=== PATIENT | female | born 1995 | race Caucasian/White ===

== ENCOUNTER 2018-02-05 14:02 | Emergency (ER) | payer BC ==
--- NOTE | 2018-02-05 14:53 | Emergency Department Record ---
History of Present Illness - General Chief complaint: Dehydration Stated complaint: DEHYDRATED Time Seen by Provider: 02/05/18 14:49 Source: Patient Mode of Arrival: Ambulatory Limitations: No limitations - History of Present Illness Initial comments: 23 yo female presents with nausea, vomiting and diarrhea that started on . She is feeling weak, tired, and dehydrated. No blood in the stools. No recent antibiotics. No definite sick contacts. NO underlying GI disease history. Her last vomiting was last night. The diarrhea continues. She was sent from a [facility] after evaluation. MD complaint: Diarrhea, Nausea, Vomiting Onset/Timin -: Days(s) Description of Vomiting: Watery Description of Diarrhea: Water Location: Diffuse Quality: Aching Improves with: None Worsens with: Eating Context: Other Associated Symptoms: Headaches, Malaise, Weakness - Related Data Home Medications Medication Instructions Recorded Confirmed Last Taken Ondansetron [Zofran Odt] 4 mg PO Q8H 02/05/18 02/05/18 Unknown Previous Rx's Medication Instructions Recorded Loperamide HCl [Imodium A-D] 2 mg PO Q4H PRN #12 tablet 02/05/18 Ondansetron [Zofran Odt] 4 mg PO Q8H #15 tab.rapdis 02/05/18 Allergies Allergy/AdvReac Type Severity Reaction Status Date / Time No Known Allergies Allergy not taking Unverified 02/05/18 14:49 Travel Screening - Travel/Exposure Within Last 30 Days Have you traveled within the last 30 days?: No Review of Systems Constitutional: Reports: Fever, Malaise, Weakness. Denies: Chills Eyes: Denies: Eye discharge ENT: Denies: Congestion, Throat pain Respiratory: Denies: Cough, Dyspnea, Hemoptysis, Stridor, Wheezes Cardiovascular: Denies: Chest pain, Palpitations, Syncope Endocrine: Reports: Fatigue Gastrointestinal: Reports: Diarrhea, Nausea, Vomiting Genitourinary: Denies: Dysuria, Urgency Musculoskeletal: Denies: Arthralgia, Back pain, Myalgia Skin: Denies: Bruising, Change in color, Rash Neurological: Reports: Headache. Denies: Confusion, Vertigo Psychiatric: Denies: Anxiety Hematological/Lymphatic: Denies: Easy bleeding, Easy bruising, Swollen glands Physical Exam - General General Appearance: Alert, Oriented x3, Cooperative, No acute distress Limitations: No limitations - Head Head exam: Atraumatic, Normal inspection - Eye Eye exam: Normal appearance. negative: Conjunctival injection, Scleral icterus - ENT ENT exam: Normal exam, Mucous membranes moist Ear exam: Normal external inspection Nasal Exam: Normal inspection Mouth exam: Normal external inspection - Neck Neck exam: Normal inspection - Respiratory Respiratory exam: Normal lung sounds bilaterally. negative: Respiratory distress - Cardiovascular Cardiovascular Exam: Regular rate, Normal rhythm, Normal heart sounds - GI/Abdominal GI/Abdominal exam: Soft. negative: Guarding, Rebound, Rigid, Tenderness - Rectal Rectal exam: Deferred - exam: Deferred - Extremities Extremities exam: negative: Pedal edema, Tenderness - Back Back exam: Denies: CVA tenderness (R), CVA tenderness (L) - Neurological Neurological exam: Alert, Oriented X3 - Psychiatric Psychiatric exam: Normal affect, Normal mood - Skin Skin exam: Dry, Intact, Normal color, Warm Course Vital Signs 02/05/18 14:45 Temperature 98.6 F Pulse Rate 104 H Respiratory 20 Rate Blood Pressure 157/99 Pulse Ox 96 - Reevaluation(s) Reevaluation #1: 02/05/18 15:57 The labs were reviewed The CBC is normal The CMP has normal Bili and Alk Phos but elevated AST/ALT of 100 and 200 No vomiting or diarrhea at this point in the ED 02/05/18 16:12 The patient is doing much better. No nausea. She still has a little urge to have diarrhea. We discussed her labs and need to have her liver enzymes recheck in 1-2 weeks. Sooner if not feeling better. Medical Decision Making - Lab Data Result diagrams: 02/05/18 14:50 02/05/18 14:50 Disposition Disposition: Discharge Clinical Impression: Vomiting and diarrhea, Dehydration Disposition: Home, Self-Care Condition: (1) Good Instructions: Dehydration (ED), Gastroenteritis (ED) Additional Instructions: Stay hydrated with small frequent amounts of fluids Call your doctor for close follow up Return if worse, fever, uncontrolled nausea or vomiting. You will need to have your liver enzymes rechecked in 1-2 weeks with your doctor. Return sooner if you have continued nausea, diarrhea or see any yellowing of the skin or white part of the eyes. Prescriptions: Loperamide HCl [Imodium A-D] 2 mg PO Q4H PRN #12 tablet PRN Reason: Diarrhea Ondansetron [Zofran Odt] 4 mg PO Q8H #15 tab.rapdis Forms: Patient Portal Access Time of Disposition: 16:13 Quality - Quality Measures Quality Measures: N/A - Blood Pressure Screening Does Patient Have Any of the Following: No Blood Pressure Classification: Hypertensive Reading Systolic Measurement: 157 Diastolic Measurement: 99 Screening for High Blood Pressure: < Pre-Hypertensive BP, F/U Documented > [ G8950] Pre-Hypertensive Follow-up Interventions: Referral to alternative/primary care provider.
[2018-02-05] MEDS ORDERED: ONDANSETRON HCL IV 4 MG/2 ML VIAL IVP ONE (15:04)
[2018-02-05] MEDS ORDERED: 0.9 % SODIUM CHLORIDE 1,000 ML BAG IV ONE (15:04)
[2018-02-05 15:26] LABS: BASO % 0.1 % (0-6); EOS % 0.7 % (0-6); GRAN % 52.9 % (47-80); HEMATOCRIT 44.3 % (35.0-47.0); HEMOGLOBIN 15.3 gm/dl (11.6-16.0); LYMPH % 31.3 % (16-45); MEAN CELL VOLUME 78.4 fl (81-97); MEAN CORPUSCULAR HGB CONC 34.5 g/dl (32-36); MEAN PLATELET VOLUME 10.1 fl (7.4-10.4); PLATELET COUNT 310 K/uL (130-400); RED BLOOD COUNT 5.65 M/uL (3.80-5.40); RED CELL DISTRIBUTION WIDTH 13.8 % (11.5-14.5); WHITE BLOOD COUNT W/O DIFF 7.2 K/uL (4.2-12.2)
[2018-02-05 15:37] LABS: BLOOD UREA NITROGEN 11 mg/dL (6-20); CREATININE 0.7 mg/dL (0.5-0.9); EST GLOMERULAR FILTRATION RATE > 60 mL/min
[2018-02-05 15:38] LABS: TOTAL PROTEIN 8.5 g/dL (6.6-8.7)
[2018-02-05 15:40] LABS: GLUCOSE,RANDOM 92 mg/dL (74-109)
[2018-02-05 15:43] LABS: ALB/GLOB RATIO 1.1 (1.1-1.8); ALBUMIN 4.4 g/dL (4.0-5.0); ALKALINE PHOSPHATASE 85 U/L (35-104); ALT/SGPT 200 U/L (<33); AST/SGOT 105 U/L (10.0-35.0)
== END 2018-02-05 16:30 | disposition home or self-care (01) ==
LOC: ER 14:02
DX: E86.0 Dehydration (principal); R11.2 Nausea with vomiting, unspecified; R19.7 Diarrhea, unspecified; R74.8 Abnormal levels of other serum enzymes; R53.1 Weakness; R51 Headache
CPT/HCPCS: 99284 ×2; 96374; 96361; 85025; 80053; 84703; J2405; J7030

== ENCOUNTER 2018-12-11 20:19 | Emergency (ER) | payer BC ==
[2018-12-11] MEDS ORDERED: AMOXICILLIN 500MG CAPSULE PO ONE (20:26)
[2018-12-11] MEDS ORDERED: NEOMYCIN/POLYMYXIN B SULF/HC 10ML BTL OT ONE (20:26)
--- NOTE | 2018-12-11 20:28 | Emergency Department Record ---
History of Present Illness - General Chief complaint: ENT Stated complaint: EAR PAIN Time Seen by Provider: 12/11/18 20:20 Source: Patient Mode of Arrival: Ambulatory Limitations: No limitations - History of Present Illness Initial comments: 23 yo female presents to ED for evaluation of left ear pain symptoms that began this evening. Patient reports recent URI symptoms for the past 7-10 days, reports mild subjective fever symptoms this evening. Patient denies dental pain or difficulty in breathing symptoms. Patient denies cough or sore throat symp toms, denies health problems other than PCOS and hypothyroid. MD complaint: Ear pain Onset/Timin -: Days(s) Location: L ear Severity: Moderate Quality: Aching Consistency: Constant Improves with: None Worsens with: None - Related Data Previous Rx's Medication Instructions Recorded Amoxicillin [Amoxil] 875 mg PO BID #19 tab 12/11/18 Allergies Allergy/AdvReac Type Severity Reaction Status Date / Time No Known Allergies Allergy CONGESTION Verified 12/11/18 20:28 Review of Systems Constitutional: Denies: Chills, Fever, Malaise, Night sweats Eyes: Denies: Eye discharge, Eye pain ENT: Reports: Ear pain. Denies: Congestion, Epistaxis Respiratory: Denies: Cough, Dyspnea Cardiovascular: Denies: Chest pain Endocrine: Denies: Fatigue, Heat or cold intolerance Gastrointestinal: Denies: Abdominal pain, Nausea, Vomiting Genitourinary: Denies: Incontinence, Retention Musculoskeletal: Denies: Arthralgia, Back pain Skin: Denies: Bruising, Change in color Neurological: Denies: Abnormal gait, Confusion, Headache, Seizure Psychiatric: Denies: Anxiety Hematological/Lymphatic: Denies: Anemia, Blood Clots Past Medical History - SOCIAL HISTORY Smoking Status: Never smoker Drug Use: None - RESPIRATORY Hx Respiratory Disorders: No - CARDIOVASCULAR Hx Cardio Disorders: Yes Comment:: murmur - NEURO Hx Neuro Disorders: No - GI Hx GI Disorders: No - Hx Genitourinary Disorders: Yes Comment:: pcos - ENDOCRINE Hx Endocrine Disorders: No - MUSCULOSKELETAL Hx Musculoskeletal Disorders: No - PSYCH Hx Psych Problems: No - HEMATOLOGY/ONCOLOGY Hx Hematology/Oncology Disorders: No Physical Exam - General General Appearance: Alert, Oriented x3, Cooperative, Mild distress Limitations: No limitations - Head Head exam: Atraumatic, Normocephalic, Normal inspection Head exam detail: negative: Abrasion, Contusion, Melvin's sign, General tenderness, Hematoma, Laceration - Eye Eye exam: Normal appearance. negative: Conjunctival injection, Periorbital swelling, Periorbital tenderness, Scleral icterus - ENT Ear exam: External canal tenderness, Other (Swelling, erythema to the EAC, TM cannot be well visualized on examination.). negative: Auricular hematoma, Auricular trauma Nasal Exam: negative: Active bleeding, Discharge, Dried blood, Foreign body Mouth exam: negative: Drooling, Laceration, Muffled voice, Tongue elevation - Neck Neck exam: Normal inspection. negative: Meningismus, Tenderness - Respiratory Respiratory exam: Normal lung sounds bilaterally. negative: Rales, Respiratory distress, Rhonchi, Stridor - Cardiovascular Cardiovascular Exam: Regular rate, Normal rhythm, Normal heart sounds - GI/Abdominal GI/Abdominal exam: Soft. negative: Rebound, Rigid, Tenderness - Rectal Rectal exam: Deferred - exam: Deferred - Extremities Extremities exam: Normal inspection. negative: Pedal edema, Tenderness - Back Back exam: Denies: CVA tenderness (R), CVA tenderness (L) - Neurological Neurological exam: Alert, Normal gait, Oriented X3 - Psychiatric Psychiatric exam: Normal affect, Normal mood - Skin Skin exam: Normal color. negative: Abrasion Type of lesion: negative: abrasion Course - Reevaluation(s) Reevaluation #1: 12/11/18 20:33 Patient was seen and examined Examination appears c/w otitis externa, cannot determine if infection of the TM is present on exam. Will treat for both otitis externa and otitis media with polymyxin ear drops and amoxicillin as directed. Patient is in agreement with the plan of care as discussed. Disposition Disposition: Discharge Clinical Impression: Otitis externa Qualifiers: Otitis externa type: unspecified type Chronicity: acute Laterality: left Qualified Code(s): H60.502 - Unspecified acute noninfective otitis externa, left ear Disposition: Home, Self-Care Condition: (2) Stable Instructions: Otitis Externa (ED) Additional Instructions: Return to ED if your symptoms worsen or if you have any concerns. Polymyxin ear drops and Amoxicillin as directed. Follow-up with your family doctor in 3-5 days as directed. Prescriptions: Amoxicillin [Amoxil] 875 mg PO BID #19 tab Forms: Patient Portal Access Time of Disposition: 20:27 Quality - Quality Measures Quality Measures: N/A - Blood Pressure Screening Does Patient Have Any of the Following: No Blood Pressure Classification: Pre-Hypertensive BP Reading Systolic Measurement: 139 Diastolic Measurement: 88 Screening for High Blood Pressure: < Pre-Hypertensive BP, F/U Documented > [G8950] Pre-Hypertensive Follow-up Interventions: Referral to alternative/primary care provider.
== END 2018-12-11 20:42 | disposition home or self-care (01) ==
LOC: ER 20:19
DX: H60.502 Unspecified acute noninfective otitis externa, left ear (principal)
CPT/HCPCS: 99283